=== PATIENT | female | born 1995 | race Hispanic/Latino ===

== ENCOUNTER 2021-02-11 21:58 | Emergency (ER) | payer OTHER ==
[2021-02-11 22:40] LABS: Basophils % 0.1 % (0-1.3); Hematocrit 36.2 % (36.0-45.0); Lymphocytes % 7.1 % (15.3-44.8); MPV 8.2 fL (7.6-11.3); RBC Red Blood Cell Count 4.05 M/uL (3.86-4.86)
[2021-02-11] MEDS ORDERED: MORPHINE 4 MG/ML SYR ONE (22:43)
[2021-02-11] MEDS ORDERED: NA CHLORIDE 0.9% 1,000 ML ONE (22:43)
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
[2021-02-11 22:49] LABS: BUN Blood Urea Nitrogen 15 mg/dL (7-18); Bicarbonate 24 mmol/L (21-32); Glucose Level 107 mg/dL (74-106); Potassium 3.4 mmol/L (3.5-5.1); Sodium Level 141 mmol/L (136-145)
[2021-02-11] MEDS ORDERED: PROMETHAZINE INJ 25 MG/ML AMP ONE (22:55)
[2021-02-11 23:29] LABS: Blood Morphology Comment NOT SEEN (NOT SEEN); Platelet Estimate ADEQ
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
[2021-02-12] MEDS ORDERED: KETOROLAC 30 MG/ML INJ ONE (01:05)
[2021-02-12] MEDS ORDERED: CYCLOBENZAPRINE 10 MG TAB ONE (01:05)
[2021-02-12 01:53] VITALS: BP 115/79; O2SAT 99
[2021-02-12 01:54] VITALS: TEMP 98.1
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
== END 2021-02-12 01:14 | disposition home or self-care (01) ==
LOC: ER 21:58
DX: S40.212A Abrasion of left shoulder, initial encounter (principal); S80.212A Abrasion, left knee, initial encounter; S80.211A Abrasion, right knee, initial encounter; V43.52XA Car driver injured in collision with other type car in traffic accident, initial encounter
CPT/HCPCS: 85025; 80048; 36415; 86900; 86850; 86901; 70450; 72125; 71260; 74177; 71045; Q9967; J2550; J7030; 96361; 96374; 96375; 99284; G0390